=== PATIENT | female | born 1955 | race American Indian/Alaskan Native ===

== ENCOUNTER 2019-08-19 08:53 | Outpatient (CLI) | payer BC ==
--- NOTE | 2019-08-19 14:27 | Mammography Report ---
DIGITAL SCREENING MAMMOGRAM WITH CAD, 08/19/2019 INDICATION: Routine screening mammography. TECHNIQUE: Digital bilateral 2D mammography was obtained in the craniocaudal and mediolateral obliq ue projections. This examination was interpreted with the benefit of Computer-Aided Detection analysi s. COMPARISON: 08/14/2018 FINDINGS: Breast Density: There are scattered areas of fibroglandular density. There is no evidence of dominant mass, suspicious calcifications or architectural distortion in eithe r breast. New enlarged bilateral axillary lymph nodes. The largest are on the left and there appears to be one left axillary lymph node measuring 4.5 cm. IMPRESSION: Bilateral axillary lymphadenopathy requiring additional imaging. Recommend recall for rebekah ateral axillary ultrasound. Follow up recommendation: Ultrasound Category 0: Incomplete. Needs additional imaging evaluation and/or prior mammograms for comparison. A "normal" or negative report should not discourage follow up or biopsy of a clinically significant f inding. A written summary of these findings will be mailed to the patient. The patient will be entered into a mammography reporting system which will generate a reminder letter for the patient's next appointmen t at the appropriate interval. The [employer] recommends yearly mammograms starting at age 40 and continuing as l jf as a woman is in good health. Breast MRI is recommended for women with an approximate 20-25% or greater lifetime risk of breast cancer, including women with a strong family history of breast or ova ju cancer or who have been treated for Hodgkin's disease. Signer Name: Luis F Fenton MD Signed: 08/19/2019 2:22 PM Workstation Name: [id number]
== END 2019-08-19 08:54 | disposition home or self-care (01) ==
LOC: MAMMO 08:53
PROVIDERS: ATTEND Internal Medicine
DX: Z12.31 Encounter for screening mammogram for malignant neoplasm of breast (principal)
CPT/HCPCS: 77067

== ENCOUNTER 2019-10-21 10:18 | Outpatient (CLI) | payer BC ==
--- NOTE | 2019-10-21 12:12 | Ultrasound Report ---
LIMITED BILATERAL BREAST/AXILLARY ULTRASOUND HISTORY: Bilateral axillary lymphadenopathy identified on screening mammogram. COMPARISON: 08/19/2019 bilateral screening mammogram. FINDINGS: Focused sonographic evaluation of the right axilla demonstrates Too numerous to count enlar ged lymph nodes with abnormal morphology and no central fat. The largest measures 5.4 x 5.2 x 2.8 cm. Focused sonographic evaluation upon the left axilla demonstrates Too numerous to count enlarged axill diana lymph nodes with abnormal morphology and minimal central fat. The largest measures 4.3 x 3.8 x 3. 6 cm. IMPRESSION: Bilateral axillary lymphadenopathy with too numerous to count bilateral abnormal lymph nodes. Accordi ng the to the patient she has a known diagnosis of CLL,. .The axillary lymphadenopathy is new since 10/14/2017. If clinically indicated, ultrasound-guided lymph node biopsy would be feasible. BIRADS 4: Suspicious abnormality. Signer Name: Luis F Fenton MD Signed: 10/21/2019 12:07 PM Workstation Name: [id number]
== END 2019-10-21 10:19 | disposition home or self-care (01) ==
LOC: US 10:18
PROVIDERS: ATTEND Internal Medicine
DX: I89.8 Other specified noninfective disorders of lymphatic vessels and lymph nodes (principal)

== ENCOUNTER 2022-02-23 07:21 | Outpatient (CLI) | payer BC ==
--- NOTE | 2022-02-23 11:25 | Mammography Report ---
DIGITAL SCREENING MAMMOGRAM WITH CAD, 02/23/2022 CLINICAL INFORMATION / INDICATION: Routine screening mammography. TECHNIQUE: Digital bilateral 2D mammography was obtained in the craniocaudal and mediolateral obliqu e projections. This examination was interpreted with the benefit of Computer-Aided Detection analysis . COMPARISON: 08/14/2018, 08/19/2019 FINDINGS: Breast Density: There are scattered areas of fibroglandular density. No dominant mass, suspicious calcifications, or architectural distortion in either breast. No interval change. IMPRESSION: No mammographic evidence of malignancy. Follow up recommendation: Routine yearly screening mammogram. BI-RADS Category 1: NEGATIVE A "normal" or negative report should not discourage follow up or biopsy of a clinically significant f inding. A written summary of these findings will be mailed to the patient. The patient will be entered into a mammography reporting system which will generate a reminder letter for the patient's next appointmen t at the appropriate interval. The [employer] recommends yearly mammograms starting at age 40 and continuing as l jf as a woman is in good health. Breast MRI is recommended for women with an approximate 20-25% or greater lifetime risk of breast cancer, including women with a strong family history of breast or ova ju cancer or who have been treated for Hodgkin's disease. Signer Name: Mahogany Nolen MD Signed: 02/23/2022 11:21 AM Workstation Name: [id number]
== END 2022-02-23 07:22 | disposition home or self-care (01) ==
LOC: MAMMO 07:21
PROVIDERS: ATTEND Internal Medicine
DX: Z12.31 Encounter for screening mammogram for malignant neoplasm of breast (principal)
CPT/HCPCS: 77067